=== PATIENT | female | born 1990 | race Caucasian/White ===

== ENCOUNTER 2017-03-07 19:57 | Outpatient (CLI) | payer MEDICAID | END 2017-03-07 19:58 | disposition EMS.NT | LOC: EMS 19:57 | PROVIDERS: ATTEND Surgery | DX: R41.82 Altered mental status, unspecified (principal); Z72.89 Other problems related to lifestyle ==

== ENCOUNTER 2017-03-07 21:35 | Emergency (ER) | payer SELFPAY ==
[2017-03-07 21:56] VITALS: BP 142/99
--- NOTE | 2017-03-07 22:16 | ED Physician Documentation ---
PD HPI ALTERED MENTAL STATUS - Stated complaint Stated Complaint: POSS INGESTION - Chief complaint Chief Complaint: MHE - History obtained from History obtained from: Patient, Family - History of Present Illness Timing - onset: Today Timing - details: Abrupt onset Quality / character: Confused, Hallucinating Contributing factors: Substance abuse Basline status: Alert and oriented X 3 Similar symptoms before: No diagnosis Recently seen: Not recently seen - Additional information Additional information: Patient is a 26 year old female with a history of substance abuse who is brought in by her parents for altered mental status. Patient was found walking around outside looking for her son. Police picked up the patient and brought the patient back to her parents house. Patient admitted to using meth, marijuana, cocaine and heroin. Parents brought the patient in because she seemed agitated and was unable to settle down. Upon initial evaluation in the emergency department patient was awake, alert and oriented and seemed to be under the influence of meth. Review of Systems Constitutional: denies: Fever Eyes: denies: Loss of vision Ears: reports: Reviewed and negative Nose: reports: Reviewed and negative Throat: denies: Oral lesions / sores Cardiac: reports: Palpitations. denies: Chest pain / pressure Respiratory: denies: Dyspnea, Cough GI: denies: Nausea, Vomiting : reports: Reviewed and negative Skin: denies: Lesions, Laceration (s) Musculoskeletal: reports: Reviewed and negative Neurologic: denies: Generalized weakness, Focal weakness, Numbness Psychiatric: reports: Delusions, Anxiety. denies: Depressed, Suicidal Immunocompromised: denies: Immunocompromised PD PAST MEDICAL HISTORY - Past Medical History Past Medical History: No - Past Surgical History Past Surgical History: No - Present Medications Home Medications: Ambulatory Orders Medication Instructions Recorded Confirmed Naloxone HCl [Narcan] 4 mg NS DAILY #10 spray 03/07/17 - Allergies Allergies/Adverse Reactions: Allergies Allergy/AdvReac Type Severity Reaction Status Date / Time No Known Drug Allergies Allergy Verified 03/07/17 21:56 - Social History Does the pt smoke?: Yes Smoking Status: Current every day smoker Does the pt have substance abuse?: Yes Substance Use and Type: Marijuana, Meth, Heroin - Immunizations Immunizations are current?: No - POLST Patient has POLST: No PD ED PE NORMAL - Vitals Vital signs reviewed: Yes - General General: Alert and oriented X 3 - HEENT HEENT: Atraumatic, PERRL - Neck Neck: Supple, no meningeal sign - Cardiac Cardiac: No murmur - Extremities Extremities: No deformity, Normal ROM s pain, No edema - Neuro Neuro: No motor deficit, No sensory deficit Eye Opening: Spontaneous Motor: Obeys Commands Verbal: Oriented GCS Score: 15 PD ED PE EXPANDED - Cardiac Cardiac: Tachy - Psych Psych: Agitated. No: Depressed, Suicidal, Homicidal, Tearful, Combative Results - Vitals Vitals: Vital Signs - 24 hr 03/07/17 21:40 Temperature 37 C Heart Rate 130 H Respiratory 18 Rate Blood Pressure 142/99 H O2 Saturation 98 Oxygen O2 Source Room air PD MEDICAL DECISION MAKING - ED course Complexity details: reviewed old records, re-evaluated patient, considered differential, d/w patient, d/w family ED course: Patient was seen and examined at bedside. Patient was with her parents. Patient was under the influence of meth but was directable and able to answer questions appropriately. A lengthy discussion was had with the family concerning the various drug types and their side effects. Information about rehab facilities was given. Ample time was given to ask and answer questions. Patient was safe to go home with the family and was stable for outpatient follow up and possibly rehab. 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 It is a stimulant and can cause agitation and delusions. You can quit taking it without and withdrawal repercussions. You should work with your doctor and call the numbers listed if you feel like you are ready for rehab. You may return to the emergency department at any time for drug overdose. Discharge Date/Time: 03/07/17 22:27
== END 2017-03-07 22:27 | disposition home or self-care (01) ==
LOC: ED 21:35
DX: F15.10 Other stimulant abuse, uncomplicated (principal); F17.200 Nicotine dependence, unspecified, uncomplicated
CPT/HCPCS: 99282; 99283